=== PATIENT | female | born 1975 | race Hispanic/Latino ===

== ENCOUNTER → 2024-08-21 | Outpatient (REF) | payer OTHER ==
[~2024-08-21] MED LIST: AMLODIPINE BESY10 MG PO; ASPIRIN81 MG PO; ATORVASTATIN CA20 MG PO; BUPROPION HCL150 M2 PO; HYDROCHLOROTHIA25 MG PO; JANUVIA100 MG PO; METFORMIN HCL500 MG PO
== END ==
LOC: US 09:57
PROVIDERS: ATTEND Internal Medicine Gastroenterology
DX: K80.20 Calculus of gallbladder without cholecystitis without obstruction (principal); K76.0 Fatty (change of) liver, not elsewhere classified; K76.9 Liver disease, unspecified
CPT/HCPCS: 76700